=== PATIENT | male | born 1980 | race Two or more races ===

== ENCOUNTER 2019-09-13 13:15 | Outpatient (CLI) | payer OTHER | END 2019-09-13 13:31 | disposition home or self-care (01) | LOC: SONOGRAMA 13:15 | PROVIDERS: ATTEND Internal Medicine Gastroenterology | DX: L02.91 Cutaneous abscess, unspecified (principal) ==

== ENCOUNTER 2019-12-01 06:42 | Day surgery (SDC) | payer OTHER ==
[~2019-12-01 06:42] MED LIST: CRESTOR40 MG PO; MICARDIS80 MG PO; PLAVIX75 MG PO; VERELAN240 MG PO
[2019-12-01] MEDS ORDERED: PERCOCET 5-3251 EACH PO (10:23)
== END 2019-12-01 13:55 | disposition home or self-care (01) ==
LOC: CIR.AMB 06:42
PROVIDERS: ATTEND Surgery
DX: L05.01 Pilonidal cyst with abscess (principal); Z20.828 Contact with and (suspected) exposure to other viral communicable diseases